=== PATIENT | female | born 1975 | race African-American/Black ===

== ENCOUNTER 2016-12-14 09:50 | Emergency (ER) | payer OTHER ==
[2016-12-14 09:55] VITALS: BP 130/87; PULSE 78; TEMP 97.9; BMI 37.1
--- NOTE | 2016-12-14 11:01 | PDOC ---
History of Present Illness - General Chief Complaint: Cold Symptoms Stated Complaint: COLD SYMPTOMS Time Seen by Provider: 12/14/16 10:38 History Source: Patient Exam Limitations: No Limitations - History of Present Illness Initial Comments: 12/14/16 10:53 41 yr female with c/o body aches and chills cough and nausea for 1 days. denies abd pain or urinary complaints. 12/14/16 11:04 12/14/16 11:06 Severity: reports: mild Past History - Past Medical History Allergies/Adverse Reactions: Allergies Allergy/AdvReac Type Severity Reaction Status Date / Time No Known Allergies Allergy Verified 12/14/16 09:53 Home Medications: Ambulatory Orders NK [No Known Home Medication] 09/05/15 Anemia: No Asthma: No Cancer: No Cardiac Disorders: No CVA: No COPD: No CHF: No Dementia: No Diabetes: No GI Disorders: No Disorders: No HTN: No Hypercholesterolemia: No Liver Disease: No Seizures: No Thyroid Disease: No - Surgical History Abdominal Surgery: No Appendectomy: Yes (APPENDECTOMY '95) Cardiac Surgery: No Cholecystectomy: No Lung Surgery: No Neurologic Surgery: No Orthopedic Surgery: No - Immunization History Immunization Up to Date: Yes - Suicide/Smoking/Psychosocial Hx Smoking Status: No Smoking History: Never smoked Have you smoked in the past 12 months: No Number of Cigarettes Smoked Daily: 0 Hx Alcohol Use: No Drug/Substance Use Hx: No Substance Use Type: None Hx Substance Use Treatment: No Respiratory Specific PMHX - Complaint Specific PMHX Angina: No Bronchitis: No Pneumonia: No Pulmonary Embolus: No TB (Tuberculosis): No Review of Systems - Review of Systems Able to Perform ROS?: Yes Is the patient limited Mexican proficient: No Constitutional: Yes: Symptoms Reported, See HPI, Chills HEENTM: Yes: Symptoms Reported Respiratory: Yes: Cough ABD/GI: Yes: Nausea : No: Symptoms Reported Musculoskeletal: Yes: Symptoms Reported, Muscle Pain Integumentary: No: Symptoms Reported Neurological: No: Symptoms reported *Physical Exam - Vital Signs Last Vital Signs Temp Pulse Resp BP Pulse Ox 97.9 F 78 18 130/87 99 12/14/16 09:53 12/14/16 09:53 12/14/16 09:53 12/14/16 09:53 12/14/16 09:53 - Physical Exam General Appearance: Yes: Nourished, Appropriately Dressed HEENT: positive: EOMI, CHANDA, Normal ENT Inspection, TMs Normal, Pharynx Normal, Nasal Congestion Neck: positive: Supple Respiratory/Chest: positive: Lungs Clear, Normal Breath Sounds. 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 tylenol and zofran 12/14/16 11:50 negative flu will dc home with supportive care 12/14/16 11:50 *DC/Admit/Observation/Transfer Diagnosis at time of Disposition: Viral illness - Discharge Dispostion Disposition: HOME Condition at time of disposition: Good - Patient Instructions Printed Discharge Instructions: How to Avoid a Cold or Flu Additional Instructions: drink pleanty of water drink vitamin C and ZInc to boost your immune system take motrin 800mg every 6hrs for pain as needed follow with your doctor if symptoms worsen or persist - Post Discharge Activity Forms/Work/School Notes: Back to Work
[2016-12-14] MEDS ORDERED: ONDANSETRON *ODT* 4 MG TABLET SL ONE (11:06)
[2016-12-14] MEDS ORDERED: ONDANSETRON *ODT* 4 MG TABLET ONE (11:10)
[2016-12-14] MEDS ORDERED: ACETAMINOPHEN 325 MG TABLET (FP) PO ONE (11:16)
[2016-12-14] MEDS ORDERED: ACETAMINOPHEN 325 MG TABLET (FP) ONE (11:21)
== END 2016-12-14 12:04 | disposition home or self-care (01) ==
LOC: JERFT 09:50
DX: B34.9 Viral infection, unspecified (principal)
CPT/HCPCS: 87804; 99281-25

== ENCOUNTER 2016-12-31 08:06 | Emergency (ER) | payer OTHER ==
[2016-12-31 08:17] VITALS: TEMP 97.7; BMI 38.7
[2016-12-31] MEDS ORDERED: SODIUM CHLORIDE 0.9% 1000 ML INFUS.BAG IV ONE (09:22)
[2016-12-31] MEDS ORDERED: METOCLOPRAMIDE HCL INJECTION 10 MG/2 ML VIAL IVPUSH ONE (09:22)
[2016-12-31] MEDS ORDERED: METOCLOPRAMIDE HCL INJECTION 10 MG/2 ML VIAL ONE (09:31)
[2016-12-31 09:45] LABS: EOSINOPHIL 0.4 % (0-4.5); MCH 26.9 pg (25.7-33.7); MCHC 33.5 g/dl (32.0-36.0); MEAN CELL VOLUME 80.2 fl (80-96); MEAN PLT VOLUME 8.8 fl (7.5-11.1); NEUTROPHILS 74.5 % (42.8-82.8); PLATELET COUNT 242 K/MM3 (134-434); RDW 15.9 % (11.6-15.6); WHITE BLOOD COUNT 6.2 K/mm3 (4.0-10.0)
[2016-12-31 09:55] LABS: URINE APPEARANCE SLCLOUDY; URINE BILIRUBIN NEGATIVE (NEGATIVE); URINE BLOOD NEGATIVE (NEGATIVE); URINE COLOR LTYELLOW; URINE GLUCOSE (UA) NEGATIVE (NEGATIVE); URINE KETONE NEGATIVE (NEGATIVE); URINE NITRITE NEGATIVE (NEGATIVE); URINE PROTEIN NEGATIVE (NEGATIVE); URINE UROBILINOGEN NEGATIVE mg/dL (0.2-1.0)
--- NOTE | 2016-12-31 10:06 | PDOC ---
History of Present Illness - General History Source: Patient Exam Limitations: No Limitations - History of Present Illness Initial Comments: 12/31/16 10:08 The patient is a 41 year old female, with a significant past medical history of chiari malformation detect who presents to the emergency department with headache, nausea, and vomit for about a week. The patient reports her headache has severely worsened since last being seen on 12/24/16. She ranks her pain a 8/ 10 in pain intensity. She denies since being in the ER following up with a Neurologist. She notes also having a cough and body aches for about 3 weeks. She notes her cough often aggravated her headache. She reports seeing her PCP, who prescribed her an antibiotic on 12/25/16. She denies recent fevers, chills. She denies any vertigo and reports feeling mild lightheadedness with pressure in her sinuses. She denies recent diarrhea or constipation. She denies recent dysuria, frequency, urgency or hematuria. She denies recent chest pain or shortness of breath. Allergies: NKA Past surgical history: None reported. Social history: Nonsmoker. Denies EtOH use and recreational drug use. PCP: <Roque Hoffman - Last Filed: 12/31/16 11:42> - General History Source: Patient Exam Limitations: No Limitations <Lety Moran - Last Filed: 12/31/16 14:02> - General Chief Complaint: Headache Stated Complaint: DIZZINESS Past History <Roque Hoffman - Last Filed: 12/31/16 11:42> - Past Medical History Anemia: No Asthma: No Cancer: No Cardiac Disorders: No CVA: No COPD: No CHF: No Dementia: No Diabetes: No GI Disorders: No Disorders: No HTN: No Hypercholesterolemia: No Liver Disease: No Seizures: No Thyroid Disease: No Other medical history: DENIES. - Surgical History Abdominal Surgery: No Appendectomy: Yes (APPENDECTOMY '95) Cardiac Surgery: No Cholecystectomy: No Lung Surgery: No Neurologic Surgery: No Orthopedic Surgery: No - Immunization History Immunization Up to Date: Yes - Suicide/Smoking/Psychosocial Hx Smoking Status: No Smoking History: Never smoked Have you smoked in the past 12 months: No Number of Cigarettes Smoked Daily: 0 Hx Alcohol Use: No Drug/Substance Use Hx: No Substance Use Type: None Hx Substance Use Treatment: No <DeanLety - Last Filed: 12/31/16 14:02> - Past Medical History Allergies/Adverse Reactions: Allergies Allergy/AdvReac Type Severity Reaction Status Date / Time No Known Allergies Allergy Verified 12/31/16 08:14 Home Medications: Ambulatory Orders Fluticasone Prop 0.05% Nasal [Flonase -] 1 - 2 spray NS DAILY #1 spray.pump Ibuprofen [Motrin -] 600 mg PO TID #90 tablet 12/31/16 Neuro Specific PMHX - Complaint Specific PMHX Glaucoma: No Herniated Disk: No Laminectomy: No Migraine: No Multiple Sclerosis: No TIA: No <NorahmarvaLety - Last Filed: 12/31/16 14:02> Review of Systems - Review of Systems Able to Perform ROS?: Yes Comments:: 12/31/16 10:08 GENERAL/CONSTITUTIONAL: +body aches. No fever or chills. No weakness. HEAD, EYES, EARS, NOSE AND THROAT: No change in vision. No ear pain or discharge. No sore throat. CARDIOVASCULAR: No chest pain or shortness of breath. RESPIRATORY: +cough No wheezing, or hemoptysis. GASTROINTESTINAL: +nausea, vomiting No diarrhea or constipation. GENITOURINARY: No dysuria, frequency, or change in urination. MUSCULOSKELETAL: No joint or muscle swelling or pain. No neck or back pain. SKIN: No rash NEUROLOGIC: +headache No vertigo, loss of consciousness, or change in strength/ sensation. ENDOCRINE: No increased thirst. No abnormal weight change. HEMATOLOGIC/LYMPHATIC: No anemia, easy bleeding, or history of blood clots. ALLERGIC/IMMUNOLOGIC: No hives or skin allergy. <Roque Hoffman - Last Filed: 12/31/16 11:42> *Physical Exam - Vital Signs Last Vital Signs Temp Pulse Resp BP Pulse Ox 97.7 F 65 19 173/90 100 12/31/16 08:14 12/31/16 08:14 12/31/16 08:14 12/31/16 08:14 12/31/16 08:14 - Physical Exam Comments: 12/31/16 10:08 GENERAL: Awake, alert, and fully oriented, in no acute distress HEAD: No signs of trauma EYES: PERRLA, EOMI, sclera anicteric, conjunctiva clear ENT: Auricles normal inspection, hearing grossly normal, nares patent, Moist mucosa NECK: Normal ROM, supple, JVD, or masses LUNGS: Breath sounds equal, clear to auscultation bilaterally. No wheezes, and no crackles HEART: Regular rate and rhythm, normal S1 and S2, no murmurs, rubs or gallops ABDOMEN: Soft, nontender, normoactive bowel sounds. No guarding, no rebound. No masses EXTREMITIES: Normal range of motion, no edema. No clubbing or cyanosis. No cords, erythema, or tenderness. 2+DP/PT pulses. NEUROLOGICAL: Normal speech, normal gait, moves all extremities equally. Speech clear. SKIN: Warm, Dry, normal turgor, no rashes or lesions noted. <Roque Hoffman - Last Filed: 12/31/16 11:42> - Vital Signs Last Vital Signs Temp Pulse Resp BP Pulse Ox 97.7 F 65 19 173/90 100 12/31/16 08:14 12/31/16 08:14 12/31/16 08:14 12/31/16 08:14 12/31/16 08:14 <Lety Moran - Last Filed: 12/31/16 14:02> ED Treatment Course - LABORATORY CBC & Chemistry Diagram: 12/31/16 09:29 12/31/16 09:29 - ADDITIONAL ORDERS Additional order review: Laboratory Results 12/31/16 09:23 Urine Color Ltyellow Urine Appearance Slcloudy Urine pH 7.0 Ur Specific [place] 1.014 Urine Protein Negative Urine Glucose (UA) Negative Urine Ketones Negative Urine Blood Negative Urine Nitrite Negative Urine Bilirubin Negative Urine Urobilinogen Negative Urine HCG, Qual Negative 12/31/16 09:29 RBC 4.57 MCV 80.2 MCHC 33.5 RDW 15.9 H MPV 8.8 Neutrophils % 74.5 D Lymphocytes % 20.5 D Monocytes % 3.6 L Eosinophils % 0.4 Basophils % 1.0 - Medications Given in the ED: ED Medications Discontinued Medications Generic Name Dose Route Start Last Admin Trade Name Freq PRN Reason Stop Dose Admin Metoclopramide HCl 10 mg 12/31/16 09:22 12/31/16 09:30 Reglan Injection - IVPUSH 12/31/16 09:23 10 mg ONCE ONE Administration Sodium Chloride 1,000 ml 12/31/16 09:22 12/31/16 09:30 Normal Saline - IV 12/31/16 09:23 1,000 ml ONCE ONE Administration <Roque Hoffman - Last Filed: 12/31/16 11:42> - LABORATORY CBC & Chemistry Diagram: 12/31/16 09:29 12/31/16 09:29 - ADDITIONAL ORDERS Additional order review: Laboratory Results 12/31/16 09:23 Urine Color Ltyellow Urine Appearance Slcloudy Urine pH 7.0 Ur Specific [place] 1.014 Urine Protein Negative Urine Glucose (UA) Negative Urine Ketones Negative Urine Blood Negative Urine Nitrite Negative Urine Bilirubin Negative Urine Urobilinogen Negative Urine HCG, Qual Negative 12/31/16 09:29 RBC 4.57 MCV 80.2 MCHC 33.5 RDW 15.9 H MPV 8.8 Neutrophils % 74.5 D Lymphocytes % 20.5 D Monocytes % 3.6 L Eosinophils % 0.4 Basophils % 1.0 - Medications Given in the ED: ED Medications Discontinued Medications Generic Name Dose Route Start Last Admin Trade Name Ferq PRN Reason Stop Dose Admin Metoclopramide HCl 10 mg 12/31/16 09:22 12/31/16 09:30 Reglan Injection - IVPUSH 12/31/16 09:23 10 mg ONCE ONE Administration Sodium Chloride 1,000 ml 12/31/16 09:22 12/31/16 09:30 Normal Saline - IV 12/31/16 09:23 1,000 ml ONCE ONE Administration <Lety Moran - Last Filed: 12/31/16 14:02> Medical Decision Making - Medical Decision Making 12/31/16 10:00 41-year-old female here with complaint of 3 weeks of cough congestion and now headache with nausea and vomiting. Patient was seen in the ED on December 24 for bodyaches congestion cough and what she thought was the flu. Flu test was negative at that time she had a head CT which showed a Chiari I malformation. Patient states she was discharged home and follow up with her primary Dr. Mercedes on December 25. Was started on antibiotic for bronchitis which she has been taking since. Today feels that her headache is gotten worse it's worse with coughing. Does still have persistent nausea and vomiting. Throughout 5 times today. No fevers or chills. Cough nonproductive. No vertigo. No abdominal pain. On exam patient is awake alert no acute distress. Lungs are clear bilaterally. Heart is regular. Abdomen soft nontender. Extremities are warm and well perfused. Neuro alert and oriented 3 moves all 4 extremities. Differential viral syndrome, electrolyte abnormality, pneumonia, UTI, dehydration, plan symptomatic control chest x-ray labs and IV hydration reassess 12/31/16 13:42 Patient states she is feeling much improved and headache has resolved. Chest x- ray was negative. Labs are unremarkable. We'll discharge home with a viral syndrome recommend Flonase and Sudafed ingestion. Patient also encouraged follow -up neurology regarding chiari 1 malformation. And follow-up with Dr. Fields 12/31/16 14:[address] Mercedes who agrees with plan and will see patient in his office <Lety Moran - Last Filed: 12/31/16 14:02> *DC/Admit/Observation/Transfer - Attestations Scribe Attestion: 12/31/16 10:09 Documentation prepared by Roque Hoffman, acting as medical billing supervisor for Lety Moran MD. <Roque Hoffman - Last Filed: 12/31/16 11:42> <Lety Moran - Last Filed: 12/31/16 14:02> Diagnosis at time of Disposition: Viral URI, Headache - Discharge Dispostion Disposition: HOME Condition at time of disposition: Improved - Prescriptions Prescriptions: Fluticasone Prop 0.05% Nasal [Flonase -] 1 - 2 spray NS DAILY #1 spray.pump Ibuprofen [Motrin -] 600 mg PO TID #90 tablet - Referrals Referrals: Juan Luis Arriaga MD [Staff Physician] - - Patient Instructions Printed Discharge Instructions: DI for Viral Syndrome Additional Instructions: Follow-up with your primary care doctor. He can take Motrin 600 mg every 8 hours as needed for pain. Return for any persistent vomiting worsening symptoms or any concerns follow-up with neurologist Dr. Arriaga. C referral information for phone number and call to schedule. You can use Flonase intranasal spray daily to help with nasal congestion and sinus pressure
[2016-12-31 10:17] LABS: ALBUMIN 4.2 g/dl (3.4-5.0); ANION GAP 7 (8-16); CALCIUM 9.3 mg/dL (8.5-10.1); CO2 25 mmol/L (21-32); CREATININE 0.7 mg/dL (0.55-1.02); GLUCOSE,RANDOM 122 mg/dL (74-106); SGPT/ALT 21 U/L (12-78)
[2016-12-31 10:19] LABS: ALK PHOS 82 U/L (45-117); BILIRUBIN,TOTAL 0.5 mg/dL (0.2-1.0); TOT PROT 8.7 g/dl (6.4-8.2)
[2016-12-31 10:20] LABS: SGOT/AST 28 U/L (15-37)
[2016-12-31] MEDS ORDERED: ONDANSETRON 4 MG/2 ML VIAL IVPUSH ONE (11:14)
[2016-12-31] MEDS ORDERED: KETOROLAC TROMETHAMINE 30 MG/1 ML VIAL IVPUSH ONE (11:15)
[2016-12-31] MEDS ORDERED: KETOROLAC TROMETHAMINE 30 MG/1 ML VIAL ONE (11:51)
[2016-12-31] MEDS ORDERED: ONDANSETRON 4 MG/2 ML VIAL ONE (11:51)
[2016-12-31 14:18] VITALS: BP 129/76; PULSE 78
[2016-12-31 16:43] LABS: URINE LEUK ESTERASE Negative (NEGATIVE)
== END 2016-12-31 14:05 | disposition home or self-care (01) ==
LOC: JER 08:06
PROC: 3E0333Z Introduction of Anti-inflammatory into Peripheral Vein, Percutaneous Approach (ICD-10-PCS; principal; 2016-12-31)
PROC: 3E033GC Introduction of Other Therapeutic Substance into Peripheral Vein, Percutaneous Approach (ICD-10-PCS; 2016-12-31)
PROC: 3E033GC Introduction of Other Therapeutic Substance into Peripheral Vein, Percutaneous Approach (ICD-10-PCS; 2016-12-31)
DX: R11.2 Nausea with vomiting, unspecified (principal); J06.9 Acute upper respiratory infection, unspecified; B97.89 Other viral agents as the cause of diseases classified elsewhere; R51 Headache
CPT/HCPCS: 36415; 71020-TC; 80053; 81003; 83690; 84703; 85025; 99282-25

== ENCOUNTER 2017-12-19 07:34 | Emergency (ER) | payer OTHER ==
[2017-12-19 07:47] VITALS: BP 136/82; PULSE 60; TEMP 98.3; BMI 38.2
--- NOTE | 2017-12-19 08:28 | PDOC ---
History of Present Illness - General Chief Complaint: Blood/Body Fluid Exposure [facility] Stated Complaint: URINE SPLASH ON FACE Time Seen by Provider: 12/19/17 08:12 History Source: Patient Exam Limitations: No Limitations - History of Present Illness Initial Comments: 12/19/17 08:25 Patient is a 42-year-old female who presents to the emergency department today after getting urine splashed in her face while working. 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 She states that she immediately washed her eyes out after it happened. Denies pain to the eyes, itching, fevers, headache. Past History - Travel Traveled outside of the country in the last 30 days: No Close contact w/someone who was outside of country & ill: No - Past Medical History Allergies/Adverse Reactions: Allergies Allergy/AdvReac Type Severity Reaction Status Date / Time No Known Allergies Allergy Verified 12/19/17 07:45 Home Medications: Ambulatory Orders Fluticasone Prop 0.05% Nasal [Flonase -] 1 - 2 spray NS DAILY #1 spray.pump Ibuprofen [Motrin -] 600 mg PO TID #90 tablet 12/31/16 Anemia: No Asthma: No Cancer: No Cardiac Disorders: No CVA: No COPD: No CHF: No Dementia: No Diabetes: No GI Disorders: No Disorders: No HTN: No Hypercholesterolemia: No Liver Disease: No Seizures: No Thyroid Disease: No - Surgical History Abdominal Surgery: No Appendectomy: Yes (APPENDECTOMY '95) Cardiac Surgery: No Cholecystectomy: No Lung Surgery: No Neurologic Surgery: No Orthopedic Surgery: No - Immunization History Immunization Up to Date: Yes - Suicide/Smoking/Psychosocial Hx Smoking Status: No Smoking History: Never smoked Have you smoked in the past 12 months: No Number of Cigarettes Smoked Daily: 0 Hx Alcohol Use: No Drug/Substance Use Hx: No Substance Use Type: None Hx Substance Use Treatment: No Review of Systems - Review of Systems Able to Perform ROS?: Yes Comments:: 12/19/17 08:23 CONSTITUTIONAL: Absent: fever, chills, diaphoresis, generalized weakness, malaise, loss of appetite HEENT: Absent: rhinorrhea, nasal congestion, throat pain, throat swelling, difficulty swallowing, mouth swelling, ear pain, eye pain, visual Changes CARDIOVASCULAR: Absent: chest pain, loss of consciousness, palpitations, irregular heart rate, peripheral edema RESPIRATORY: Absent: cough, shortness of breath, dyspnea with exertion, orthopnea, wheezing, stridor, hemoptysis GASTROINTESTINAL: Absent: abdominal pain, abdominal distension, nausea, vomiting, diarrhea, constipation, melena, hematochezia GENITOURINARY: Absent: dysuria, frequency, urgency, hesitancy, hematuria, flank pain, genital pain MUSCULOSKELETAL: Absent: myalgia, arthralgia, joint swelling SKIN: Absent: rash, itching, pallor HEMATOLOGIC/IMMUNOLOGIC: Absent: easy bleeding, easy bruising, lymphadenopathy, frequent infections ENDOCRINE: Absent: unexplained weight gain, unexplained weight loss, heat intolerance, cold intolerance NEUROLOGIC: Absent: headache, focal weakness or paresthesias, dizziness, unsteady gait, seizure, mental status changes, bladder or bowel incontinence PSYCHIATRIC: Absent: anxiety, depression, suicidal or homicidal ideation, hallucinations. Is the patient limited Nauruan proficient: No *Physical Exam - Vital Signs Last Vital Signs Temp Pulse Resp BP Pulse Ox 98.3 F 60 18 136/82 99 12/19/17 07:43 12/19/17 07:43 12/19/17 07:43 12/19/17 07:43 12/19/17 07:43 - Physical Exam Comments: 12/19/17 08:25 GENERAL: The patient is awake, alert, and fully oriented, in no acute distress. HEAD: Normal with no signs of trauma. EYES: Pupils equal, round and reactive to light, extraocular movements intact, sclera anicteric, conjunctiva clear. EXTREMITIES: Normal range of motion, no edema. NEUROLOGICAL: Normal speech, normal gait. PSYCH: Normal mood, normal affect. SKIN: Warm, Dry, normal turgor, no rashes or lesions noted. Medical Decision Making - Medical Decision Making 12/19/17 08:26 Patient is a 42-year-old female who presents to the emergency department after getting urine splashed in her eyes. Patient washed out her eyes prior to ED arrival. No eye complaints at this time. As urine is sterile, there is no need to test for HIV or hepatitis at this time. We'll discharge patient home to follow-up with employee health should she have other issues related to the urine splash. I discussed the physical exam findings, ancillary test results and final diagnoses with the patient. I answered all of the patient's questions. The patient was satisfied with the care received and felt comfortable with the discharge plan and treatment plan. The Patient agrees to follow up with the primary care physician/specialist within 24-72 hours. Return precautions were given. *DC/Admit/Observation/Transfer Diagnosis at time of Disposition: Patient exposure to body fluids - Discharge Dispostion Disposition: HOME Condition at time of disposition: Stable Decision to Admit order: No - Referrals Referrals: Charmaine Rico MD [Primary Care Provider] - - Patient Instructions Printed Discharge Instructions: How to Handle Body Fluid Exposure -- Healthcare Worker Additional Instructions: You were evaluated for exposure to urine today. Urine is considered sterile. There is no need for blood testing at this time. Please follow up employee health if you have any other issues regarding the urine splash. Return to emergency department for any new or worsening symptoms.
== END 2017-12-19 08:35 | disposition home or self-care (01) ==
LOC: JERFT 07:34 → JER 07:34 → JERFT 08:35
DX: Z77.21 Contact with and (suspected) exposure to potentially hazardous body fluids (principal); T75.89XA Other specified effects of external causes, initial encounter; Y93.F9 Activity, other caregiving; Y92.230 Patient room in hospital as the place of occurrence of the external cause; Y99.0 Civilian activity done for income or pay
CPT/HCPCS: 99281-25

== ENCOUNTER 2021-05-01 03:14 | Observation (INO) | payer OTHER ==
[2021-05-01 03:43] VITALS: BMI 37.9
[2021-05-01 04:52] LABS: PH,URINE 5.5 (5.0-8.0); URINE APPEARANCE CLOUDY; URINE BILIRUBIN NEGATIVE (NEGATIVE); URINE COLOR YELLOW; URINE GLUCOSE (UA) NEGATIVE (NEGATIVE); URINE KETONE NEGATIVE (NEGATIVE); URINE LEUK ESTERASE NEGATIVE (NEGATIVE); URINE NITRITE NEGATIVE (NEGATIVE); URINE PROTEIN NEGATIVE (NEGATIVE); URINE UROBILINOGEN 0.2 mg/dL (0.2-1.0)
[2021-05-01 04:53] LABS: BASO % 1.1 % (0-2.0); EOS % 2.6 % (0-4.5); HEMATOCRIT 32.4 % (32.4-45.2); HEMOGLOBIN 10.9 GM/dL (10.7-15.3); LYMPH % 38.2 % (8-40); MCH 26.3 pg (25.7-33.7); MCHC 33.6 g/dl (32.0-36.0); MEAN CELL VOLUME 78.2 fl (80-96); MONO % 5.6 % (3.8-10.2); NEUT % 52.5 % (42.8-82.8); PLATELET COUNT 255 10^3/uL (134-434); RBC 4.14 M/mm3 (3.60-5.2); RDW 16.9 % (11.6-15.6); WHITE BLOOD COUNT 4.2 K/mm3 (4.0-10.0)
[2021-05-01 05:15] LABS: CALCIUM 9.4 mg/dL (8.5-10.1)
[2021-05-01 05:16] LABS: ALBUMIN 3.9 g/dl (3.4-5.0); BLOOD UREA NITROGEN 9.4 mg/dL (7-18)
[2021-05-01 05:17] LABS: INR 1.05 (0.83-1.09); PROTHROMBIN TIME (PATIENT) 12.1 SEC (9.7-13.0)
[2021-05-01 05:19] LABS: CREATININE 0.8 mg/dL (0.55-1.3)
[2021-05-01 05:20] LABS: ACTIVATED PTT 33.3 SECONDS (25.2-36.5); BILIRUBIN,TOTAL 0.9 mg/dL (0.2-1)
[2021-05-01 05:21] LABS: TOT PROT 8.1 g/dl (6.4-8.2)
[2021-05-01] MEDS ORDERED: amLODIPine BESYLATE 5 MG TABLET (FP) PO ONE (09:28)
[2021-05-01] MEDS ORDERED: amLODIPine BESYLATE 5 MG TABLET (FP) ONE (09:40)
[2021-05-01 09:56] LABS: N-TERMINAL BNP 66.1 pg/ml (5-125)
[2021-05-01] MEDS ORDERED: NIFEdipine E.R. 30 MG TABLET PO SCH (10:00)
[2021-05-01] MEDS ORDERED: LOSARTAN 50MG/HCTZ 12.5MG 1 TAB PO SCH (10:00)
[2021-05-01 13:34] VITALS: BP 160/84; PULSE 78; TEMP 98.6
[2021-05-02] MEDS ORDERED: amLODIPine BESYLATE 5 MG TABLET (FP) PO SCH (10:00)
== END 2021-05-01 13:34 | disposition home or self-care (01) ==
LOC: JER 03:14 → JERBED 06:33
PROVIDERS: ADMIT Internal Medicine; ATTEND Internal Medicine
DX: I10 Essential (primary) hypertension (principal); R55 Syncope and collapse; R42 Dizziness and giddiness; Z91.14 Patient's other noncompliance with medication regimen
CPT/HCPCS: 36415; 70450-TC; 71045-TC-FY; 80053; 80061; 81003; 83880; 84443; 84484; 85025; 85610; 85730; 87086; 93005; 93010; 93306-TC; 99285-25; C9803-CS; G0378; U0003; U0005

== ENCOUNTER 2021-07-23 02:32 | Emergency (ER) | payer OTHER ==
[2021-07-23 03:00] VITALS: TEMP 97.9; BMI 36.9
[2021-07-23] MEDS ORDERED: DEXAMETHASONE LIQUID 0.5 MG/5 ML PO ONE (03:47)
[2021-07-23] MEDS ORDERED: KETOROLAC TROMETHAMINE 15 MG/ML VIAL IM ONE (03:47)
[2021-07-23] MEDS ORDERED: DEXAMETHASONE SOD PHOSPHATE 4 MG/1 ML VIAL ONE (03:52)
[2021-07-23] MEDS ORDERED: KETOROLAC TROMETHAMINE 15 MG/ML VIAL ONE (03:53)
[2021-07-23 07:58] VITALS: BP 128/83; PULSE 69
== END 2021-07-23 06:10 | disposition home or self-care (01) ==
LOC: JER 02:32
PROC: 3E0233Z Introduction of Anti-inflammatory into Muscle, Percutaneous Approach (ICD-10-PCS; principal; 2021-07-23)
DX: U07.1 COVID-19 (principal); J02.9 Acute pharyngitis, unspecified
CPT/HCPCS: 0241U-QW; 99284-25

== ENCOUNTER 2023-03-11 11:38 | Emergency (ER) | payer OTHER ==
[2023-03-11] MEDS ORDERED: LIDOCAINE 4% PATCH TP ONE ×2 (13:00→13:40)
[2023-03-11] MEDS ORDERED: ACETAMINOPHEN 500 MG TABLET (FP) PO ONE (13:00)
[2023-03-11] MEDS ORDERED: KETOROLAC TROMETHAMINE 30 MG/1 ML VIAL IM ONE (13:00)
[2023-03-11] MEDS ORDERED: DIPHTH,PERTUSS(ACELL),TET 0.5 ML DISP.SYRIN IM ONE ×2 (13:03→13:41)
[2023-03-11] MEDS ORDERED: KETOROLAC TROMETHAMINE 30 MG/1 ML VIAL ONE (13:41)
[2023-03-11] MEDS ORDERED: ACETAMINOPHEN 500 MG TABLET (FP) ONE (13:41)
[2023-03-11 14:30] VITALS: BP 185/99; PULSE 81; RESP 18; TEMP 98.3; BMI 37.1
[2023-03-11] MEDS ORDERED: LIDOCAINE PATCH REMOVAL MC SCH (22:00)
== END 2023-03-11 14:53 | disposition home or self-care (01) ==
LOC: JER 11:38
PROC: 3E0233Z Introduction of Anti-inflammatory into Muscle, Percutaneous Approach (ICD-10-PCS; principal; 2023-03-11)
PROC: 3E0234Z Introduction of Serum, Toxoid and Vaccine into Muscle, Percutaneous Approach (ICD-10-PCS; 2023-03-11)
DX: M25.562 Pain in left knee (principal)
CPT/HCPCS: 73502-TC-LT-FY; 73552-TC-LT-FY; 73562-TC-LT-FY; 90715; 99284-25